=== PATIENT | male | born 1970 | race Caucasian/White ===

== ENCOUNTER 2023-06-24 11:45 | Inpatient (IN) | payer OTHER ==
[~2023-06-24] VITALS: Ht 167.6 cm; Wt 76.2 kg
[2023-06-24 11:59] VITALS: BP 156/99; PULSE 61; RESP 20; TEMP 97.2; O2SAT 97
[2023-06-24 13:06] LABS: BASOPHILS # (AUTO) 0.1 K/uL (0.00-0.22); BASOPHILS % (AUTO) 0.8 % (0.0-2.0); EOSINOPHILS # (AUTO) 0.2 K/uL (0-0.4); EOSINOPHILS % (AUTO) 2.1 % (0.0-4.0); HEMATOCRIT 42.4 % (36-52); HEMOGLOBIN 14.6 g/dL (12.0-18.0); LYMPHOCYTES # (AUTO) 2.6 K/uL (2.0-11.5); LYMPHOCYTES % (AUTO) 35.5 % (20.5-51.1); MEAN CORPUSCULAR HEMOGLOBIN 28 pg (27-31); MEAN CORPUSCULAR HGB CONC 34 g/dL (33-37); MEAN CORPUSCULAR VOLUME 81.5 fL (80-94); MONOCYTES # (AUTO) 0.5 K/uL (0.8-1.0); MONOCYTES % (AUTO) 7.5 % (1.7-9.3); NEUTROPHILS % (AUTO) 54.1 % (42.2-75.2); PLATELET COUNT (AUTO) 257 K/uL (140-450); RED BLOOD CELL COUNT(AUTO) 5.21 MIL/uL (4.20-6.10); RED CELL DISTRIBUTION WIDTH 13.9 % (11.6-13.7); WHITE BLOOD COUNT (AUTO) 7.3 K/uL (4.8-10.8)
[2023-06-24] MEDS: KETOROLAC 30 MG/ML VIAL IVP ONE (13:08)
[2023-06-24 13:29] LABS: ALBUMIN 3.2 g/dL (3.4-5.0); ANION GAP 10.2 (8-16); CARBON DIOXIDE 29.6 mmol/L (21-32); CREATININE 1.2 mg/dL (0.6-1.3); POTASSIUM 3.8 mmol/L (3.5-5.1); TOTAL BILIRUBIN 0.6 mg/dL (0.0-1.0); TOTAL PROTEIN, SERUM 8.4 g/dL (6.4-8.2)
[2023-06-24 14:48] LABS: APPEARANCE,URINE CLEAR (CLEAR); BILIRUBIN,URINE NEGATIVE (NEGATIVE); BLOOD, URINE NEGATIVE (NEGATIVE); COLOR,URINE YELLOW (YELLOW); LEUKOCYTE ESTERASE ,URINE NEGATIVE (NEGATIVE); NITRITE, URINE NEGATIVE (NEGATIVE); PROTEIN,URINE NEGATIVE (NEGATIVE); UGLUCOSE NEGATIVE (NEGATIVE); UROBILINOGEN,URINE 0.2 EU/dL (0.2 - 1)
[2023-06-24 17:35] LABS: INR 0.94 (0.8-1.2); PARTIAL THROMBOPLASTIN TIME 28.2 secs (22-35.6); PROTHROMBIN TIME 9.9 secs (10.8-13.4)
[2023-06-24] MEDS ORDERED: ONDANSETRON 4 MG/2 ML VIAL IVP PRN (18:15)
[2023-06-24] MEDS ORDERED: HYDROcodone/APAP 5/325 MG 1 TAB TAB PO PRN (18:15)
[2023-06-24] MEDS ORDERED: MORPHINE SULFATE 4 MG/ML SYR IVP PRN (18:15)
[2023-06-24] MEDS ORDERED: ACETAMINOPHEN 325 MG TAB PO PRN (18:15)
[2023-06-24] MEDS: DEXT 5% / NACL 0.45% 1,000 ML IV SCH (18:49)
[2023-06-24 20:30] VITALS: BP 122/82; PULSE 70; RESP 18; TEMP 97.7; O2SAT 96
[2023-06-24 22:33] VITALS: RESP 18
[2023-06-24] MEDS: BOWEL EVACUANT DRINK 4,000 ML PDS PO ONE (23:26)
[2023-06-24] MEDS: BOWEL EVACUANT DRINK 4,000 ML PDS ONE (23:56)
[2023-06-25 04:00] VITALS: BP 124/82; PULSE 134; RESP 18; TEMP 100.1; O2SAT 96
[2023-06-25] MEDS: MIDAZOLAM 2 MG/2 ML VIAL ONE (07:30)
[2023-06-25] MEDS: HYDROmorphone PFS 2 MG/ML SYR ONE (07:31)
[2023-06-25] MEDS: ceFAZolin 2,000 MG VIAL ONE (07:40)
[2023-06-25] MEDS: metroNIDAZOLE 500 MG/NS PREMIX 100 ML IV ONE (07:41)
[2023-06-25] MEDS: PROPOFOL 200 MG/20 ML VIAL IV ONE (07:49)
[2023-06-25 08:00] VITALS: BP 114/76; PULSE 98; RESP 18; TEMP 97.1; O2SAT 97
[2023-06-25] MEDS ORDERED: GLYCOPYRROLATE 0.2 MG/ML VIAL ONE (08:00)
[2023-06-25 08:02] VITALS: PULSE 112; RESP 18; O2SAT 96
[2023-06-25] MEDS: ROCURONIUM 50 MG/5 ML VIAL IV ONE (08:18)
[2023-06-25] MEDS: BUPIVACAINE MPF 0.25% 10 ML VIAL INJ ONE ×2 (08:31→10:39)
[2023-06-25] MEDS: LIDOCAINE/EPI 1% 1:100000 20 ML VIAL INJ ONE ×2 (08:31→10:39)
[2023-06-25] MEDS: fentaNYL citrate 0.05 MG/ML VIAL ONE (09:20)
[2023-06-25] MEDS ORDERED: HYDROcodone/APAP 5/325 MG 1 TAB TAB PO PRN (11:30)
[2023-06-25] MEDS: LACTATED RINGERS 1,000 ML IV SCH (11:30)
[2023-06-25] MEDS ORDERED: ONDANSETRON 4 MG/2 ML VIAL IVP PRN (11:30)
[2023-06-25] MEDS: ACETAMINOPHEN EXTRA STRENGTH 500 MG TAB PO SCH (11:30)
[2023-06-25 12:00] VITALS: BP 110/62; PULSE 96; RESP 20; TEMP 98.2; O2SAT 97
[2023-06-25] MEDS: KETOROLAC 15 MG/ML VIAL IVP SCH (13:21)
[2023-06-25 15:51] LABS: BASOPHILS % (AUTO) 0.2 % (0.0-2.0); HEMATOCRIT 38.3 % (36-52); HEMOGLOBIN 12.9 g/dL (12.0-18.0); LYMPHOCYTES # (AUTO) 0.5 K/uL (2.0-11.5); LYMPHOCYTES % (AUTO) 3.7 % (20.5-51.1); MEAN CORPUSCULAR HEMOGLOBIN 27 pg (27-31); MEAN CORPUSCULAR HGB CONC 34 g/dL (33-37); MEAN CORPUSCULAR VOLUME 81.4 fL (80-94); MONOCYTES # (AUTO) 0.5 K/uL (0.8-1.0); MONOCYTES % (AUTO) 3.9 % (1.7-9.3); NEUTROPHILS # (AUTO) 11.2 K/uL (1.8-7.7); NEUTROPHILS % (AUTO) 92.2 % (42.2-75.2); PLATELET COUNT (AUTO) 207 K/uL (140-450); RED BLOOD CELL COUNT(AUTO) 4.71 MIL/uL (4.20-6.10); RED CELL DISTRIBUTION WIDTH 13.9 % (11.6-13.7); WHITE BLOOD COUNT (AUTO) 12.2 K/uL (4.8-10.8)
[2023-06-25 16:00] VITALS: BP 112/67; PULSE 97; RESP 20; TEMP 97.1; O2SAT 98
[2023-06-25 16:16] LABS: ALBUMIN 2.6 g/dL (3.4-5.0); CALCIUM 8.2 mg/dL (8.5-10.1); CARBON DIOXIDE 29.3 mmol/L (21-32); CREATININE 1.2 mg/dL (0.6-1.3); MAGNESIUM 1.6 mg/dL (1.8-2.4); POTASSIUM 4.3 mmol/L (3.5-5.1); TOTAL BILIRUBIN 0.7 mg/dL (0.0-1.0); TOTAL PROTEIN, SERUM 7.2 g/dL (6.4-8.2)
[2023-06-25] MEDS: GABAPENTIN 300 MG CAP PO SCH (17:00)
[2023-06-25 20:00] VITALS: BP 131/83; PULSE 100; RESP 20; TEMP 98.6; O2SAT 98
[2023-06-25] MEDS: HYDROmorphone 1 MG/ML AMP IVP PRN (20:31)
[2023-06-26 06:37] LABS: BASOPHILS % (AUTO) 0.3 % (0.0-2.0); EOSINOPHILS % (AUTO) 0.3 % (0.0-4.0); HEMATOCRIT 32.5 % (36-52); HEMOGLOBIN 11.2 g/dL (12.0-18.0); LYMPHOCYTES % (AUTO) 12.7 % (20.5-51.1); MEAN CORPUSCULAR HEMOGLOBIN 28 pg (27-31); MEAN CORPUSCULAR HGB CONC 34 g/dL (33-37); MONOCYTES # (AUTO) 0.6 K/uL (0.8-1.0); MONOCYTES % (AUTO) 7.8 % (1.7-9.3); NEUTROPHILS % (AUTO) 78.9 % (42.2-75.2); PLATELET COUNT (AUTO) 169 K/uL (140-450); RED BLOOD CELL COUNT(AUTO) 4.01 MIL/uL (4.20-6.10); RED CELL DISTRIBUTION WIDTH 14.2 % (11.6-13.7); WHITE BLOOD COUNT (AUTO) 7.6 K/uL (4.8-10.8)
[2023-06-26 07:07] LABS: ANION GAP 11.2 (8-16); CALCIUM 8.1 mg/dL (8.5-10.1); CARBON DIOXIDE 25.6 mmol/L (21-32); POTASSIUM 3.8 mmol/L (3.5-5.1)
[2023-06-26 08:00] VITALS: BP 122/82; PULSE 89; RESP 18; TEMP 97.5; O2SAT 97
[2023-06-26] MEDS: ENOXAPARIN 40 MG/0.4 ML SYR SUBQ SCH (08:43)
[2023-06-26] MEDS: ONDANSETRON 4 MG/2 ML VIAL ONE (11:02)
[2023-06-26] MEDS: DEXAMETHASONE 4 MG/ML VIAL ONE ×2 (11:02)
[2023-06-26 16:00] VITALS: BP 127/84; PULSE 87; RESP 18; TEMP 97.9; O2SAT 99
[2023-06-26 20:00] VITALS: BP 118/75; PULSE 97; RESP 18; TEMP 37.2; O2SAT 97
[2023-06-27 06:52] LABS: BASOPHILS % (AUTO) 0.5 % (0.0-2.0); EOSINOPHILS # (AUTO) 0.1 K/uL (0-0.4); EOSINOPHILS % (AUTO) 0.9 % (0.0-4.0); HEMATOCRIT 33.3 % (36-52); HEMOGLOBIN 11.4 g/dL (12.0-18.0); LYMPHOCYTES # (AUTO) 1.2 K/uL (2.0-11.5); LYMPHOCYTES % (AUTO) 16.3 % (20.5-51.1); MEAN CORPUSCULAR HEMOGLOBIN 28 pg (27-31); MEAN CORPUSCULAR HGB CONC 34 g/dL (33-37); MEAN CORPUSCULAR VOLUME 80.7 fL (80-94); MONOCYTES # (AUTO) 0.5 K/uL (0.8-1.0); MONOCYTES % (AUTO) 6.5 % (1.7-9.3); NEUTROPHILS # (AUTO) 5.5 K/uL (1.8-7.7); NEUTROPHILS % (AUTO) 75.8 % (42.2-75.2); PLATELET COUNT (AUTO) 172 K/uL (140-450); RED BLOOD CELL COUNT(AUTO) 4.12 MIL/uL (4.20-6.10); RED CELL DISTRIBUTION WIDTH 14.1 % (11.6-13.7); WHITE BLOOD COUNT (AUTO) 7.2 K/uL (4.8-10.8)
[2023-06-27 07:05] LABS: ANION GAP 10.6 (8-16); CALCIUM 8.1 mg/dL (8.5-10.1); CARBON DIOXIDE 25.1 mmol/L (21-32); POTASSIUM 3.7 mmol/L (3.5-5.1)
[2023-06-27 08:00] VITALS: TEMP 97.5
[2023-06-27] MEDS ORDERED: KETO10TA2 PO (15:38)
[2023-06-27] MEDS ORDERED: GABA300C55 PO (15:38)
[2023-06-28] MEDS ORDERED: TOR10 PO (15:15)
== END 2023-06-27 18:00 | disposition home or self-care (01) | DRG 231 ==
LOC: MED 11:45 → MMU 18:15 → MTU 20:46
PROVIDERS: ADMIT Hospitalist; ATTEND Hospitalist
PROC: 0DNN4ZZ Release Sigmoid Colon, Percutaneous Endoscopic Approach (ICD-10-PCS; 2023-06-25)
PROC: 0DN84ZZ Release Small Intestine, Percutaneous Endoscopic Approach (ICD-10-PCS; 2023-06-25)
PROC: 0DBN4ZZ Excision of Sigmoid Colon, Percutaneous Endoscopic Approach (ICD-10-PCS; principal; 2023-06-25 07:30)
DX: K57.90 Diverticulosis of intestine, part unspecified, without perforation or abscess without bleeding (principal); R65.11 Systemic inflammatory response syndrome (SIRS) of non-infectious origin with acute organ dysfunction; E43 Unspecified severe protein-calorie malnutrition; K40.90 Unilateral inguinal hernia, without obstruction or gangrene, not specified as recurrent; R11.2 Nausea with vomiting, unspecified; R63.4 Abnormal weight loss; Z68.27 Body mass index [BMI] 27.0-27.9, adult
CPT/HCPCS: 36415; 71045; 80048; 80053; 81003; 83605; 83690; 83735; 85025; 85610; 85730; 86886; 86900; 86901; 87081; 88307; 93005; 99285; J1100; J1170; J1650; J1885; J2001; J2250; J2405; J2704; J3010; J3490; J7030; J7120; Q9967

== ENCOUNTER 2023-06-30 10:35 | Emergency (ER) | payer OTHER ==
[~2023-06-30] VITALS: Ht 167.6 cm; Wt 73.9 kg
[~2023-06-30 10:35] MED LIST: GABA300C55 PO; KETO10TA2 PO; TOR10 PO
[2023-06-30 10:51] VITALS: BP 122/86; PULSE 78; RESP 16; TEMP 99.1; O2SAT 98
[2023-06-30 11:12] VITALS: BP 109/69; PULSE 75; RESP 16; TEMP 99.1; O2SAT 98
== END 2023-06-30 12:33 | disposition home or self-care (01) ==
LOC: MED 10:35
DX: Z48.815 Encounter for surgical aftercare following surgery on the digestive system (principal); J45.909 Unspecified asthma, uncomplicated; Z98.890 Other specified postprocedural states; Z79.899 Other long term (current) drug therapy
CPT/HCPCS: 99281

== ENCOUNTER 2024-02-06 06:35 | Inpatient (IN) | payer OTHER ==
[~2024-02-06] VITALS: Ht 172.7 cm; Wt 72.6 kg
[2024-02-06 06:41] VITALS: BP 144/97; PULSE 86; RESP 16; TEMP 98.3; O2SAT 99
[2024-02-06 07:17] LABS: BASOPHILS % (AUTO) 0.4 % (0.0-2.0); EOSINOPHILS # (AUTO) 0.2 K/uL (0-0.4); EOSINOPHILS % (AUTO) 2.5 % (0.0-4.0); HEMATOCRIT 39.8 % (36-52); HEMOGLOBIN 13.3 g/dL (12.0-18.0); LYMPHOCYTES # (AUTO) 1.4 K/uL (2.0-11.5); LYMPHOCYTES % (AUTO) 21.6 % (20.5-51.1); MEAN CORPUSCULAR HEMOGLOBIN 27 pg (27-31); MEAN CORPUSCULAR HGB CONC 33 g/dL (33-37); MEAN CORPUSCULAR VOLUME 80.2 fL (80-94); MONOCYTES # (AUTO) 0.4 K/uL (0.8-1.0); NEUTROPHILS # (AUTO) 4.5 K/uL (1.8-7.7); NEUTROPHILS % (AUTO) 69.5 % (42.2-75.2); PLATELET COUNT (AUTO) 195 K/uL (140-450); RED BLOOD CELL COUNT(AUTO) 4.96 MIL/uL (4.20-6.10); RED CELL DISTRIBUTION WIDTH 14.2 % (11.6-13.7); WHITE BLOOD COUNT (AUTO) 6.5 K/uL (4.8-10.8)
[2024-02-06 07:29] LABS: ANION GAP 13.8 (8-16); CALCIUM 9.3 mg/dL (8.5-10.1); CARBON DIOXIDE 25.1 mmol/L (21-32); CREATININE 1.1 mg/dL (0.6-1.3); POTASSIUM 3.9 mmol/L (3.5-5.1)
[2024-02-06 07:38] LABS: ALBUMIN 3.5 g/dL (3.4-5.0); BILIRUBIN,DIRECT 0.1 mg/dL (0.0-0.3); TOTAL BILIRUBIN 0.4 mg/dL (0.0-1.0); TOTAL PROTEIN, SERUM 7.6 g/dL (6.4-8.2)
[2024-02-06] MEDS ORDERED: PIPERACILLIN/TAZOBACTAM 3.375 GM VIAL IV ONE (12:07)
[2024-02-06] MEDS: PIPERACILLIN/TAZOBACTAM 3.375 GM in DEXTROSE 5% 50 ML IV ONE (12:19)
[2024-02-06] MEDS ORDERED: MORPHINE SULFATE 4 MG/ML SYR IVP PRN (12:20)
[2024-02-06] MEDS ORDERED: ACETAMINOPHEN 325 MG TAB PO PRN (12:20)
[2024-02-06] MEDS ORDERED: MAG SULF 2000 MG/WATER PREMIX 50 ML IV PRN (12:20)
[2024-02-06] MEDS ORDERED: KCL 20 MEQ IN 100 mL PREMIX 200 ML IV PRN (12:20)
[2024-02-06] MEDS ORDERED: ONDANSETRON 4 MG/2 ML VIAL IVP PRN (12:20)
[2024-02-06] MEDS ORDERED: POTASSIUM CHLORIDE 10 MEQ TABER PO PRN (12:20)
[2024-02-06] MEDS: NACL 0.9% 1,000 ML IV SCH (14:03)
[2024-02-06] MEDS: metroNIDAZOLE 500 MG/NS PREMIX 100 ML IV SCH (14:42)
[2024-02-06 14:57] VITALS: PULSE 86
[2024-02-06 16:00] VITALS: TEMP 98.6
[2024-02-06 19:38] VITALS: PULSE 68; RESP 14; O2SAT 98
[2024-02-06 21:12] VITALS: BP 111/71; PULSE 123; RESP 16; TEMP 98.4; O2SAT 97
[2024-02-07] VITALS: BP 111/71; PULSE 123; RESP 16; TEMP 98.4; O2SAT 97
[2024-02-07 04:28] VITALS: BP 108/71; PULSE 81; RESP 16; TEMP 97.4; O2SAT 95
[2024-02-07 06:58] LABS: BASOPHILS % (AUTO) 0.4 % (0.0-2.0); EOSINOPHILS # (AUTO) 0.1 K/uL (0-0.4); EOSINOPHILS % (AUTO) 0.9 % (0.0-4.0); HEMATOCRIT 35.8 % (36-52); HEMOGLOBIN 11.9 g/dL (12.0-18.0); LYMPHOCYTES # (AUTO) 1.6 K/uL (2.0-11.5); LYMPHOCYTES % (AUTO) 21.9 % (20.5-51.1); MEAN CORPUSCULAR HEMOGLOBIN 26 pg (27-31); MEAN CORPUSCULAR HGB CONC 33 g/dL (33-37); MEAN CORPUSCULAR VOLUME 78.9 fL (80-94); MONOCYTES # (AUTO) 0.6 K/uL (0.8-1.0); MONOCYTES % (AUTO) 7.7 % (1.7-9.3); NEUTROPHILS # (AUTO) 5.1 K/uL (1.8-7.7); NEUTROPHILS % (AUTO) 69.1 % (42.2-75.2); PLATELET COUNT (AUTO) 183 K/uL (140-450); RED BLOOD CELL COUNT(AUTO) 4.54 MIL/uL (4.20-6.10); RED CELL DISTRIBUTION WIDTH 13.9 % (11.6-13.7); WHITE BLOOD COUNT (AUTO) 7.4 K/uL (4.8-10.8)
[2024-02-07 07:24] LABS: ANION GAP 15.1 (8-16); CALCIUM 8.4 mg/dL (8.5-10.1); CARBON DIOXIDE 22.6 mmol/L (21-32); CREATININE 1.1 mg/dL (0.6-1.3); POTASSIUM 3.7 mmol/L (3.5-5.1)
[2024-02-07 07:28] LABS: MAGNESIUM 1.7 mg/dL (1.8-2.4); PHOSPHORUS 3.3 mg/dL (2.5-4.9)
[2024-02-07] MEDS: MEDS-TO-BEDS MC SCH (09:00)
[2024-02-07] MEDS: MAGNESIUM OXIDE 400 MG TAB PO PRN (11:45)
[2024-02-07 12:00] VITALS: BP 123/79; PULSE 91; RESP 18; TEMP 99.2; O2SAT 95
[2024-02-07] MEDS ORDERED: METR-435 PO (15:07)
[2024-02-07] MEDS ORDERED: CIPR500T4 PO (15:07)
== END 2024-02-07 16:54 | disposition home or self-care (01) | DRG 244 ==
LOC: MED 06:35 → MTU 12:22
PROVIDERS: ADMIT Hospitalist; ATTEND Hospitalist
DX: K57.20 Diverticulitis of large intestine with perforation and abscess without bleeding (principal); I10 Essential (primary) hypertension; J45.909 Unspecified asthma, uncomplicated; Z79.899 Other long term (current) drug therapy; Z90.49 Acquired absence of other specified parts of digestive tract
CPT/HCPCS: 36415; 80048; 80076; 83605; 83690; 83735; 84100; 85025; 87040; 87081; 96365; 96375; 99285; J0696; J1644; J2543; J3490; J7060; Q9967

== ENCOUNTER 2024-02-09 09:35 | Inpatient (IN) | payer OTHER ==
[~2024-02-09] VITALS: Ht 167.6 cm; Wt 74.8 kg
[2024-02-09] VITALS (8 sets, daily range): BP systolic 128–136; BP diastolic 78–92; PULSE 95–108; RESP 18–20; TEMP 97.3–101.8; O2SAT 99–100
[~2024-02-09 09:35] MED LIST changes: +CIPR500T4 PO; -GABA300C55 PO; -KETO10TA2 PO; +METR-435 PO; -TOR10 PO
[2024-02-09 10:46] LABS: BASOPHILS # (AUTO) 0.1 K/uL (0.00-0.22); BASOPHILS % (AUTO) 0.8 % (0.0-2.0); EOSINOPHILS % (AUTO) 0.3 % (0.0-4.0); HEMATOCRIT 37.5 % (36-52); HEMOGLOBIN 12.3 g/dL (12.0-18.0); LYMPHOCYTES # (AUTO) 1.4 K/uL (2.0-11.5); LYMPHOCYTES % (AUTO) 12.1 % (20.5-51.1); MEAN CORPUSCULAR HEMOGLOBIN 26 pg (27-31); MEAN CORPUSCULAR HGB CONC 33 g/dL (33-37); MEAN CORPUSCULAR VOLUME 79.8 fL (80-94); MONOCYTES % (AUTO) 8.9 % (1.7-9.3); NEUTROPHILS % (AUTO) 77.9 % (42.2-75.2); PLATELET COUNT (AUTO) 228 K/uL (140-450); RED CELL DISTRIBUTION WIDTH 13.8 % (11.6-13.7); WHITE BLOOD COUNT (AUTO) 11.5 K/uL (4.8-10.8)
[2024-02-09 10:50] LABS: BILIRUBIN,URINE 2+ (NEGATIVE); BLOOD, URINE NEGATIVE (NEGATIVE); COLOR,URINE YELLOW (YELLOW); LEUKOCYTE ESTERASE ,URINE TRACE (NEGATIVE); NITRITE, URINE NEGATIVE (NEGATIVE); PROTEIN,URINE 1+ (NEGATIVE); UGLUCOSE NEGATIVE (NEGATIVE); UROBILINOGEN,URINE 0.2 EU/dL (0.2 - 1)
[2024-02-09] MEDS: ONDANSETRON 4 MG/2 ML VIAL IVP ONE (10:50)
[2024-02-09] MEDS: MORPHINE SULFATE 4 MG/ML SYR IVP ONE (10:53)
[2024-02-09 11:00] LABS: ANION GAP 13.3 (8-16); CALCIUM 8.4 mg/dL (8.5-10.1); CARBON DIOXIDE 26.1 mmol/L (21-32); CREATININE 1.3 mg/dL (0.6-1.3); POTASSIUM 3.4 mmol/L (3.5-5.1)
[2024-02-09 11:06] LABS: ALBUMIN 3.1 g/dL (3.4-5.0); BILIRUBIN,DIRECT 0.2 mg/dL (0.0-0.3); TOTAL BILIRUBIN 1.3 mg/dL (0.0-1.0); TOTAL PROTEIN, SERUM 7.5 g/dL (6.4-8.2)
[2024-02-09 11:13] LABS: ICTOTEST NEGATIVE (NEGATIVE)
[2024-02-09 11:17] LABS: BACTERIA,URINE 1+ /HPF (None Seen); MUCUS,URINE 1+ /LPF (None Seen); RBC,URINE 0-5 /HPF (0-5); SQUAMOUS EPITHELIAL CELL,UR 0-3 (FEW) /LPF (0-3 (FEW))
[2024-02-09 11:18] LABS: APPEARANCE,URINE SLIGHTLY HAZY (CLEAR)
[2024-02-09] MEDS ORDERED: PIPERACILLIN/TAZOBACTAM 3.375 GM VIAL IV ONE (12:12)
[2024-02-09] MEDS: PIPERACILLIN/TAZOBACTAM 3.375 GM in DEXTROSE 5% 50 ML IV ONE (12:52)
[2024-02-09] MEDS ORDERED: MAGNESIUM OXIDE 400 MG TAB PO PRN (14:10)
[2024-02-09] MEDS ORDERED: HYDROcodone/APAP 5/325 MG 1 TAB TAB PO PRN (14:10)
[2024-02-09] MEDS ORDERED: ONDANSETRON 4 MG/2 ML VIAL IVP PRN (14:10)
[2024-02-09] MEDS ORDERED: MAG SULF 2000 MG/WATER PREMIX 50 ML IV PRN (14:10)
[2024-02-09] MEDS ORDERED: KCL 20 MEQ IN 100 mL PREMIX 200 ML IV PRN (14:10)
[2024-02-09] MEDS ORDERED: MORPHINE SULFATE 4 MG/ML SYR IVP PRN (14:10)
[2024-02-09] MEDS: NACL 0.9% 1,000 ML IV SCH (14:16)
[2024-02-09] MEDS ORDERED: cefTRIAXone 1,000 MG VIAL ONE (17:44)
[2024-02-09] MEDS: ACETAMINOPHEN 325 MG TAB PO PRN (18:57)
[2024-02-10 04:00] VITALS: BP 104/58; PULSE 77; RESP 18; TEMP 97.4; O2SAT 94
[2024-02-10] MEDS: POTASSIUM CHLORIDE 10 MEQ TABER PO PRN (05:21)
[2024-02-10 05:51] LABS: BASOPHILS % (AUTO) 0.3 % (0.0-2.0); EOSINOPHILS # (AUTO) 0.2 K/uL (0-0.4); EOSINOPHILS % (AUTO) 1.8 % (0.0-4.0); HEMATOCRIT 37.1 % (36-52); HEMOGLOBIN 12.4 g/dL (12.0-18.0); LYMPHOCYTES # (AUTO) 1.2 K/uL (2.0-11.5); LYMPHOCYTES % (AUTO) 13.9 % (20.5-51.1); MEAN CORPUSCULAR HEMOGLOBIN 27 pg (27-31); MEAN CORPUSCULAR HGB CONC 33 g/dL (33-37); MEAN CORPUSCULAR VOLUME 79.3 fL (80-94); MONOCYTES # (AUTO) 0.9 K/uL (0.8-1.0); MONOCYTES % (AUTO) 9.9 % (1.7-9.3); NEUTROPHILS # (AUTO) 6.4 K/uL (1.8-7.7); NEUTROPHILS % (AUTO) 74.1 % (42.2-75.2); PLATELET COUNT (AUTO) 214 K/uL (140-450); RED BLOOD CELL COUNT(AUTO) 4.68 MIL/uL (4.20-6.10); RED CELL DISTRIBUTION WIDTH 13.6 % (11.6-13.7); WHITE BLOOD COUNT (AUTO) 8.7 K/uL (4.8-10.8)
[2024-02-10 06:22] LABS: ALBUMIN 2.8 g/dL (3.4-5.0); ANION GAP 12.8 (8-16); CALCIUM 8.6 mg/dL (8.5-10.1); CARBON DIOXIDE 27.9 mmol/L (21-32); CREATININE 1.2 mg/dL (0.6-1.3); MAGNESIUM 1.9 mg/dL (1.8-2.4); POTASSIUM 3.7 mmol/L (3.5-5.1); TOTAL BILIRUBIN 0.7 mg/dL (0.0-1.0); TOTAL PROTEIN, SERUM 7.1 g/dL (6.4-8.2)
[2024-02-10 08:00] VITALS: BP 114/74; PULSE 86; RESP 18; TEMP 98.2; O2SAT 94; O2SAT 97
[2024-02-10 12:00] VITALS: BP 121/77; PULSE 87; RESP 18; TEMP 98.1; O2SAT 97
[2024-02-10 16:00] VITALS: BP 112/67; PULSE 78; RESP 18; TEMP 97.8; O2SAT 94
[2024-02-10 20:00] VITALS: BP 119/73; PULSE 77; RESP 18; TEMP 98.2; O2SAT 100; O2SAT 94
[2024-02-11 04:00] VITALS: BP 125/80; PULSE 78; RESP 19; TEMP 97.8; O2SAT 99
[2024-02-11 05:44] LABS: BASOPHILS % (AUTO) 0.9 % (0.0-2.0); EOSINOPHILS # (AUTO) 0.2 K/uL (0-0.4); EOSINOPHILS % (AUTO) 4.1 % (0.0-4.0); HEMATOCRIT 32.6 % (36-52); HEMOGLOBIN 10.9 g/dL (12.0-18.0); LYMPHOCYTES # (AUTO) 1.2 K/uL (2.0-11.5); LYMPHOCYTES % (AUTO) 24.7 % (20.5-51.1); MEAN CORPUSCULAR HEMOGLOBIN 27 pg (27-31); MEAN CORPUSCULAR HGB CONC 33 g/dL (33-37); MEAN CORPUSCULAR VOLUME 79.4 fL (80-94); MONOCYTES # (AUTO) 0.5 K/uL (0.8-1.0); MONOCYTES % (AUTO) 9.2 % (1.7-9.3); NEUTROPHILS % (AUTO) 61.1 % (42.2-75.2); PLATELET COUNT (AUTO) 199 K/uL (140-450); RED BLOOD CELL COUNT(AUTO) 4.11 MIL/uL (4.20-6.10); RED CELL DISTRIBUTION WIDTH 13.9 % (11.6-13.7); WHITE BLOOD COUNT (AUTO) 4.9 K/uL (4.8-10.8)
[2024-02-11 06:00] LABS: ALBUMIN 2.4 g/dL (3.4-5.0); CALCIUM 8.2 mg/dL (8.5-10.1); CARBON DIOXIDE 26.3 mmol/L (21-32); CREATININE 0.9 mg/dL (0.6-1.3); TOTAL BILIRUBIN 0.3 mg/dL (0.0-1.0)
[2024-02-11 07:34] LABS: ANION GAP 13.3 (8-16); POTASSIUM 3.6 mmol/L (3.5-5.1)
[2024-02-11 08:00] VITALS: BP 125/95; PULSE 73; RESP 18; TEMP 96.6; O2SAT 97
[2024-02-11] MEDS: MEDS-TO-BEDS MC SCH (09:00)
[2024-02-11 12:00] VITALS: BP 125/95; PULSE 73; RESP 18; TEMP 96.6; O2SAT 97
[2024-02-11] MEDS ORDERED: METR-435 PO (14:10)
[2024-02-11] MEDS ORDERED: LEVO-481 PO (14:10)
[2024-02-11 16:00] VITALS: BP 136/92; PULSE 75; RESP 18; TEMP 97.1; O2SAT 97
[2024-02-11 20:00] VITALS: BP 119/73; PULSE 88; RESP 18; TEMP 98.3; O2SAT 98
[2024-02-12 04:00] VITALS: BP 130/80; PULSE 71; RESP 18; TEMP 96.5; O2SAT 99
[2024-02-12 05:17] LABS: BASOPHILS % (AUTO) 0.8 % (0.0-2.0); EOSINOPHILS # (AUTO) 0.2 K/uL (0-0.4); EOSINOPHILS % (AUTO) 4.1 % (0.0-4.0); HEMATOCRIT 31.9 % (36-52); HEMOGLOBIN 10.8 g/dL (12.0-18.0); LYMPHOCYTES # (AUTO) 1.5 K/uL (2.0-11.5); LYMPHOCYTES % (AUTO) 34.1 % (20.5-51.1); MEAN CORPUSCULAR HEMOGLOBIN 27 pg (27-31); MEAN CORPUSCULAR HGB CONC 34 g/dL (33-37); MEAN CORPUSCULAR VOLUME 78.6 fL (80-94); MONOCYTES # (AUTO) 0.6 K/uL (0.8-1.0); MONOCYTES % (AUTO) 14.3 % (1.7-9.3); NEUTROPHILS % (AUTO) 46.7 % (42.2-75.2); PLATELET COUNT (AUTO) 233 K/uL (140-450); RED BLOOD CELL COUNT(AUTO) 4.06 MIL/uL (4.20-6.10); RED CELL DISTRIBUTION WIDTH 13.9 % (11.6-13.7); WHITE BLOOD COUNT (AUTO) 4.3 K/uL (4.8-10.8)
[2024-02-12 05:56] LABS: ALBUMIN 2.4 g/dL (3.4-5.0); ANION GAP 9.9 (8-16); CALCIUM 8.3 mg/dL (8.5-10.1); CARBON DIOXIDE 28.8 mmol/L (21-32); MAGNESIUM 1.9 mg/dL (1.8-2.4); POTASSIUM 3.7 mmol/L (3.5-5.1); TOTAL BILIRUBIN 0.3 mg/dL (0.0-1.0)
[2024-02-12 08:00] VITALS: BP 132/82; PULSE 74; RESP 18; TEMP 98.9; O2SAT 98
[2024-02-12 14:06] VITALS: BP 132/82; PULSE 74; RESP 18; TEMP 98.9
== END 2024-02-12 18:00 | disposition home or self-care (01) | DRG 720 ==
LOC: MED 09:35 → MMU 14:09 → MED 14:09 → MMU 17:05
PROVIDERS: ADMIT Hospitalist; ATTEND Hospitalist
DX: A41.9 Sepsis, unspecified organism (principal); E87.0 Hyperosmolality and hypernatremia; E44.1 Mild protein-calorie malnutrition; K57.20 Diverticulitis of large intestine with perforation and abscess without bleeding; J45.909 Unspecified asthma, uncomplicated; Z79.899 Other long term (current) drug therapy; Z90.49 Acquired absence of other specified parts of digestive tract; Z68.26 Body mass index [BMI] 26.0-26.9, adult
CPT/HCPCS: 36415; 71045; 80048; 80053; 80076; 81001; 83605; 83690; 83735; 85025; 87040; 87081; 87086; 96365; 96375; 99285; J0696; J2270; J2405; J2543; J7060; Q9967